=== PATIENT | male | born 1950 | race African-American/Black ===

== ENCOUNTER 2021-12-24 11:44 | Inpatient (IN) | payer OTHER, MEDICAID ==
[~2021-12-24] VITALS: Ht 177.8 cm; Wt 78.0 kg
[2021-12-24 11:54] VITALS: BP_SYST 99
[2021-12-24] MEDS ORDERED: LORazepam 2 MG/ML VIAL IVP ONE (12:15)
[2021-12-24] MEDS ORDERED: levETIRAcetam 1,000 MG in NS 90 ML IV ONE (12:15)
[2021-12-24 12:27] LABS: BASOPHILS % (AUTO) 0.3 % (0.0-2.0); EOSINOPHILS # (AUTO) 0.1 K/uL (0.0-0.4); EOSINOPHILS % (AUTO) 1.7 % (0.0-4.0); HEMOGLOBIN 11.2 g/dL (14.0-18.0); LYMPHOCYTES # (AUTO) 0.9 K/uL (1.0-5.5); LYMPHOCYTES % (AUTO) 18.3 % (20.5-51.5); MEAN CORPUSCULAR HEMOGLOBIN 29 pg (27-31); MEAN CORPUSCULAR HGB CONC 34 % (32-36); MEAN CORPUSCULAR VOLUME 87 fL (79.0-98.0); MONOCYTES # (AUTO) 1.3 K/uL (0.0-1.0); MONOCYTES % (AUTO) 27.2 % (1.7-9.3); NEUTROPHILS # (AUTO) 2.6 K/uL (1.8-7.7); NEUTROPHILS % (AUTO) 52.5 % (40.0-70.0); PLATELET COUNT (AUTO) 243 K/uL (130-430); RED CELL DISTRIBUTION WIDTH 14.4 % (9.0-15.0)
[2021-12-24 12:35] LABS: ANION GAP 10 (5-15); CALCIUM 8.1 mg/dL (8.4-11.0); CHLORIDE 97 mmol/L (98-107); CREATININE 0.75 mg/dL (0.55-1.30); GLUCOSE 136 mg/dL (70-99); POTASSIUM 3.8 mmol/L (3.5-5.1); SODIUM SERUM 127 mmol/L (136-145); UREA NITROGEN, BLOOD 11 mg/dL (8-21)
[2021-12-24 12:41] LABS: ALANINE AMINOTRANSFERASE 20 U/L (12-78); ALBUMIN 1.9 g/dL (3.4-4.8); ASPARTATE AMINOTRANSFERASE 16 U/L (10-37); TOTAL BILIRUBIN 0.3 mg/dL (0.0-1.0)
[2021-12-24 12:43] LABS: ALCOHOL, BLOOD < 3 mg/dL (<10)
[2021-12-24] MEDS ORDERED: VALPROATE SODIUM 500 MG in D5W 100 ML IV ONE (13:45)
[2021-12-24] MEDS: levETIRAcetam 500 MG IV PREMIX 100 ML IV SCH (18:00)
[2021-12-24] MEDS: D5NS 1,000 ML IV SCH (19:03)
[2021-12-24] MEDS ORDERED: SENN-153 PO (20:00)
[2021-12-24] MEDS ORDERED: TAMS-11 PO (20:00)
[2021-12-24] MEDS ORDERED: ZINC220T4 PO (20:00)
[2021-12-24] MEDS ORDERED: BISA10SU8 PR (20:00)
[2021-12-24] MEDS ORDERED: MELA3CAP2 PO (20:00)
[2021-12-24] MEDS ORDERED: DEPS125 PO (20:00)
[2021-12-24] MEDS ORDERED: HYDR-4272 PO (20:00)
[2021-12-24] MEDS ORDERED: FINA5TAB3 PO (20:00)
[2021-12-24] MEDS ORDERED: ASCO500C18 PO (20:00)
[2021-12-24] MEDS ORDERED: POLY119P15 PO (20:00)
[2021-12-24] MEDS ORDERED: DOCU-144 PO (20:00)
[2021-12-24] MEDS ORDERED: PARO40TA80 PO (20:00)
[2021-12-24] MEDS ORDERED: ATOR20TA64 PO (20:00)
[2021-12-24 23:02] VITALS: BP_SYST 135
[2021-12-25] VITALS (12 sets, daily range): BP systolic 104–131
[2021-12-25] MEDS: D5NS 1,000 ML IV SCH ×3 (03:00→23:00)
[2021-12-25] MEDS: levETIRAcetam 500 MG IV PREMIX 100 ML IV SCH ×2 (06:28→17:06)
[2021-12-25 07:43] LABS: BASOPHILS % (AUTO) 0.3 % (0.0-2.0); EOSINOPHILS # (AUTO) 0.1 K/uL (0.0-0.4); EOSINOPHILS % (AUTO) 2.1 % (0.0-4.0); HEMOGLOBIN 11.6 g/dL (14.0-18.0); LYMPHOCYTES # (AUTO) 1.8 K/uL (1.0-5.5); LYMPHOCYTES % (AUTO) 26.8 % (20.5-51.5); MEAN CORPUSCULAR HEMOGLOBIN 30 pg (27-31); MEAN CORPUSCULAR HGB CONC 34 % (32-36); MEAN CORPUSCULAR VOLUME 87 fL (79.0-98.0); MONOCYTES % (AUTO) 29.2 % (1.7-9.3); NEUTROPHILS # (AUTO) 2.8 K/uL (1.8-7.7); NEUTROPHILS % (AUTO) 41.6 % (40.0-70.0); PLATELET COUNT (AUTO) 244 K/uL (130-430); RED BLOOD CELL COUNT(AUTO) 3.92 MIL/uL (4.2-6.2); RED CELL DISTRIBUTION WIDTH 14.2 % (9.0-15.0); WHITE BLOOD COUNT (AUTO) 6.7 K/uL (4.8-10.8)
[2021-12-25 09:24] LABS: ANION GAP 12 (5-15); CHLORIDE 99 mmol/L (98-107); CREATININE 0.68 mg/dL (0.55-1.30); GLUCOSE 131 mg/dL (70-99); POTASSIUM 4.2 mmol/L (3.5-5.1); SODIUM SERUM 131 mmol/L (136-145); TOTAL BILIRUBIN 0.2 mg/dL (0.0-1.0); UREA NITROGEN, BLOOD 10 mg/dL (8-21)
[2021-12-25 09:25] LABS: ALANINE AMINOTRANSFERASE 15 U/L (12-78); ALBUMIN 1.9 g/dL (3.4-4.8); ASPARTATE AMINOTRANSFERASE 15 U/L (10-37)
[2021-12-25] MEDS: PIPERACILLIN/TAZO 3.375/DEX-IS 50 ML IV SCH ×3 (12:00→17:48)
[2021-12-26] VITALS (25 sets, daily range): BP systolic 109–144
[2021-12-26] MEDS: PIPERACILLIN/TAZO 3.375/DEX-IS 50 ML IV SCH ×5 (00:58→23:09)
[2021-12-26] MEDS: levETIRAcetam 500 MG IV PREMIX 100 ML IV SCH ×2 (05:17→17:29)
[2021-12-26 05:57] LABS: BASOPHILS % (AUTO) 0.4 % (0.0-2.0); EOSINOPHILS # (AUTO) 0.1 K/uL (0.0-0.4); EOSINOPHILS % (AUTO) 1.9 % (0.0-4.0); HEMOGLOBIN 10.5 g/dL (14.0-18.0); LYMPHOCYTES # (AUTO) 1.4 K/uL (1.0-5.5); LYMPHOCYTES % (AUTO) 24.7 % (20.5-51.5); MEAN CORPUSCULAR HEMOGLOBIN 29 pg (27-31); MEAN CORPUSCULAR HGB CONC 34 % (32-36); MEAN CORPUSCULAR VOLUME 87 fL (79.0-98.0); MONOCYTES # (AUTO) 1.4 K/uL (0.0-1.0); MONOCYTES % (AUTO) 24.5 % (1.7-9.3); NEUTROPHILS # (AUTO) 2.8 K/uL (1.8-7.7); NEUTROPHILS % (AUTO) 48.5 % (40.0-70.0); PLATELET COUNT (AUTO) 272 K/uL (130-430); RED BLOOD CELL COUNT(AUTO) 3.58 MIL/uL (4.2-6.2); RED CELL DISTRIBUTION WIDTH 14.3 % (9.0-15.0); WHITE BLOOD COUNT (AUTO) 5.7 K/uL (4.8-10.8)
[2021-12-26 06:17] LABS: ALANINE AMINOTRANSFERASE 12 U/L (12-78); ALBUMIN 1.7 g/dL (3.4-4.8); ANION GAP 8 (5-15); ASPARTATE AMINOTRANSFERASE 15 U/L (10-37); CALCIUM 7.6 mg/dL (8.4-11.0); CHLORIDE 101 mmol/L (98-107); CREATININE 0.77 mg/dL (0.55-1.30); GLUCOSE 135 mg/dL (70-99); POTASSIUM 3.9 mmol/L (3.5-5.1); SODIUM SERUM 132 mmol/L (136-145); TOTAL BILIRUBIN 0.2 mg/dL (0.0-1.0); UREA NITROGEN, BLOOD 10 mg/dL (8-21)
[2021-12-26] MEDS: D5NS 1,000 ML IV SCH ×2 (13:02→19:00)
[2021-12-26] MEDS ORDERED: MENTHOL/ZINC OXIDE 113 GM OINT. TP PRN (16:00)
[2021-12-26] MEDS ORDERED: NALOXONE HCL 0.4 MG/ML AMP (NARCAN) IVP PRN (17:15)
[2021-12-26] MEDS ORDERED: MORPHINE 2 MG/ML INJ. SYRINGE IVP ONE (17:30)
[2021-12-27] VITALS (21 sets, daily range): BP systolic 115–151
[2021-12-27] MEDS: D5NS 1,000 ML IV SCH (00:56)
[2021-12-27 03:43] LABS: BILIRUBIN,URINE NEGATIVE (NEGATIVE); BLOOD, URINE 2+ (NEGATIVE); CLARITY/URINE CLEAR (CLEAR); COLOR,URINE YELLOW (YELLOW); GLUCOSE,URINE NEGATIVE (NEGATIVE); KETONES,URINE NEGATIVE (NEGATIVE); LEUKOCYTE ESTERASE ,URINE NEGATIVE (NEGATIVE); NITRITE, URINE NEGATIVE (NEGATIVE); PH,URINE 6.5 (5.0-8.0); PROTEIN URINE NEGATIVE (NEGATIVE)
[2021-12-27 04:04] LABS: BACTERIA,URINE RARE /HPF (None Seen); WBC,URINE 0-3 /HPF (0-3)
[2021-12-27] MEDS: levETIRAcetam 500 MG IV PREMIX 100 ML IV SCH (05:14)
[2021-12-27] MEDS: PIPERACILLIN/TAZO 3.375/DEX-IS 50 ML IV SCH (05:52)
[2021-12-27 06:15] LABS: BASOPHILS % (AUTO) 0.4 % (0.0-2.0); EOSINOPHILS # (AUTO) 0.2 K/uL (0.0-0.4); EOSINOPHILS % (AUTO) 3.1 % (0.0-4.0); HEMATOCRIT 31.4 % (36-54); HEMOGLOBIN 10.7 g/dL (14.0-18.0); LYMPHOCYTES # (AUTO) 1.4 K/uL (1.0-5.5); LYMPHOCYTES % (AUTO) 25.4 % (20.5-51.5); MEAN CORPUSCULAR HEMOGLOBIN 30 pg (27-31); MEAN CORPUSCULAR HGB CONC 34 % (32-36); MEAN CORPUSCULAR VOLUME 86 fL (79.0-98.0); MONOCYTES # (AUTO) 1.2 K/uL (0.0-1.0); MONOCYTES % (AUTO) 20.7 % (1.7-9.3); NEUTROPHILS # (AUTO) 2.8 K/uL (1.8-7.7); NEUTROPHILS % (AUTO) 50.4 % (40.0-70.0); PLATELET COUNT (AUTO) 275 K/uL (130-430); RED BLOOD CELL COUNT(AUTO) 3.64 MIL/uL (4.2-6.2); RED CELL DISTRIBUTION WIDTH 14.5 % (9.0-15.0); WHITE BLOOD COUNT (AUTO) 5.6 K/uL (4.8-10.8)
[2021-12-27 06:36] LABS: ALANINE AMINOTRANSFERASE 11 U/L (12-78); ALBUMIN 1.8 g/dL (3.4-4.8); ANION GAP 7 (5-15); ASPARTATE AMINOTRANSFERASE 21 U/L (10-37); CALCIUM 7.5 mg/dL (8.4-11.0); CHLORIDE 100 mmol/L (98-107); CREATININE 0.72 mg/dL (0.55-1.30); GLUCOSE 129 mg/dL (70-99); POTASSIUM 3.6 mmol/L (3.5-5.1); SODIUM SERUM 131 mmol/L (136-145); TOTAL BILIRUBIN 0.3 mg/dL (0.0-1.0); UREA NITROGEN, BLOOD 7 mg/dL (8-21)
[2021-12-27] MEDS: BALSAM PERU/CASTOR OIL 56.7 GM OINT...G. TP SCH (09:00)
[2021-12-27] MEDS ORDERED: cefTRIAXone 1 GM in D5W 50 ML IV SCH (12:00)
[2021-12-27] MEDS ORDERED: HALOPERIDOL LACTATE 5 MG/ML VIAL IM PRN (18:30)
[2021-12-27] MEDS ORDERED: NALOXONE HCL 0.4 MG/ML AMP (NARCAN) IVP PRN (18:30)
[2021-12-27] MEDS: LORazepam 1 MG TABLET PO PRN (18:59)
[2021-12-27] MEDS: levETIRAcetam 500 MG TABLET PO SCH (22:19)
[2021-12-28] VITALS (8 sets, daily range): BP systolic 102–149
[2021-12-28] MEDS: PARoxetine HCL 20 MG TABLET PO SCH (09:01)
[2021-12-28] MEDS: levETIRAcetam 500 MG TABLET PO SCH ×2 (09:01→20:58)
[2021-12-28] MEDS: HYDROcodone/ACETAMIN 5-325 MG TAB (NORCO/ VICODIN) PO PRN ×3 (09:05→20:59)
[2021-12-28 10:10] LABS: BASOPHILS # (AUTO) 0.1 K/uL (0.0-0.2); BASOPHILS % (AUTO) 0.8 % (0.0-2.0); EOSINOPHILS # (AUTO) 0.1 K/uL (0.0-0.4); EOSINOPHILS % (AUTO) 1.7 % (0.0-4.0); HEMATOCRIT 31.9 % (36-54); LYMPHOCYTES # (AUTO) 1.5 K/uL (1.0-5.5); LYMPHOCYTES % (AUTO) 21.4 % (20.5-51.5); MEAN CORPUSCULAR HEMOGLOBIN 30 pg (27-31); MEAN CORPUSCULAR HGB CONC 34 % (32-36); MEAN CORPUSCULAR VOLUME 86 fL (79.0-98.0); MONOCYTES # (AUTO) 1.2 K/uL (0.0-1.0); MONOCYTES % (AUTO) 17.8 % (1.7-9.3); NEUTROPHILS # (AUTO) 4.1 K/uL (1.8-7.7); NEUTROPHILS % (AUTO) 58.3 % (40.0-70.0); PLATELET COUNT (AUTO) 297 K/uL (130-430); RED CELL DISTRIBUTION WIDTH 14.3 % (9.0-15.0); WHITE BLOOD COUNT (AUTO) 6.9 K/uL (4.8-10.8)
[2021-12-28 10:17] LABS: ANION GAP 10 (5-15); CALCIUM 7.8 mg/dL (8.4-11.0); CHLORIDE 102 mmol/L (98-107); CREATININE 0.78 mg/dL (0.55-1.30); GLUCOSE 155 mg/dL (70-99); POTASSIUM 3.4 mmol/L (3.5-5.1); SODIUM SERUM 134 mmol/L (136-145); UREA NITROGEN, BLOOD 9 mg/dL (8-21)
[2021-12-28] MEDS: BALSAM PERU/CASTOR OIL 56.7 GM OINT...G. TP SCH (13:05)
[2021-12-28] MEDS: D5NS 1,000 ML IV SCH ×2 (13:05→21:01)
[2021-12-28] MEDS: FLUCONAZOLE 200 mg/ NS 100 ML IV SCH (16:36)
[2021-12-28] MEDS: CEFEPIME 2 GM in D5W 100 ML IV SCH (21:00)
[2021-12-29 00:42] VITALS: BP_SYST 156
[2021-12-29 07:00] VITALS: BP_SYST 139
[2021-12-29 08:00] VITALS: BP_SYST 139
[2021-12-29] MEDS: PARoxetine HCL 20 MG TABLET PO SCH (08:29)
[2021-12-29] MEDS: levETIRAcetam 500 MG TABLET PO SCH ×2 (08:29→20:23)
[2021-12-29] MEDS: HYDROcodone/ACETAMIN 5-325 MG TAB (NORCO/ VICODIN) PO PRN (08:30)
[2021-12-29] MEDS: CEFEPIME 2 GM in D5W 100 ML IV SCH ×2 (08:38→20:24)
[2021-12-29] MEDS: BALSAM PERU/CASTOR OIL 56.7 GM OINT...G. TP SCH (09:00)
[2021-12-29] MEDS: LORazepam 1 MG TABLET PO PRN (11:53)
[2021-12-29 12:00] VITALS: BP_SYST 137
[2021-12-29] MEDS: D5NS 1,000 ML IV SCH ×2 (13:00→18:13)
[2021-12-29] MEDS: FLUCONAZOLE 200 mg/ NS 100 ML IV SCH (15:41)
[2021-12-29 16:01] VITALS: BP_SYST 126
[2021-12-29 20:00] VITALS: BP_SYST 109
[2021-12-29] MEDS ORDERED: ACETAMINOPHEN 325 MG TABLET PO PRN (20:15)
[2021-12-29 21:20] LABS: BASOPHILS % (AUTO) 0.4 % (0.0-2.0); EOSINOPHILS # (AUTO) 0.2 K/uL (0.0-0.4); EOSINOPHILS % (AUTO) 2.5 % (0.0-4.0); HEMATOCRIT 31.2 % (36-54); HEMOGLOBIN 10.5 g/dL (14.0-18.0); LYMPHOCYTES # (AUTO) 1.7 K/uL (1.0-5.5); LYMPHOCYTES % (AUTO) 17.2 % (20.5-51.5); MEAN CORPUSCULAR HEMOGLOBIN 29 pg (27-31); MEAN CORPUSCULAR HGB CONC 34 % (32-36); MEAN CORPUSCULAR VOLUME 86 fL (79.0-98.0); MONOCYTES # (AUTO) 1.3 K/uL (0.0-1.0); MONOCYTES % (AUTO) 13.6 % (1.7-9.3); NEUTROPHILS # (AUTO) 6.5 K/uL (1.8-7.7); NEUTROPHILS % (AUTO) 66.3 % (40.0-70.0); PLATELET COUNT (AUTO) 338 K/uL (130-430); RED BLOOD CELL COUNT(AUTO) 3.61 MIL/uL (4.2-6.2); RED CELL DISTRIBUTION WIDTH 14.5 % (9.0-15.0); WHITE BLOOD COUNT (AUTO) 9.8 K/uL (4.8-10.8)
[2021-12-29 21:29] LABS: ANION GAP 7 (5-15); CALCIUM 7.2 mg/dL (8.4-11.0); CHLORIDE 103 mmol/L (98-107); CREATININE 0.88 mg/dL (0.55-1.30); GLUCOSE 198 mg/dL (70-99); POTASSIUM 4.6 mmol/L (3.5-5.1); SODIUM SERUM 133 mmol/L (136-145); UREA NITROGEN, BLOOD 11 mg/dL (8-21)
[2021-12-29 21:43] LABS: BILIRUBIN,URINE NEGATIVE (NEGATIVE); BLOOD, URINE NEGATIVE (NEGATIVE); COLOR,URINE YELLOW (YELLOW); GLUCOSE,URINE NEGATIVE (NEGATIVE); KETONES,URINE NEGATIVE (NEGATIVE); LEUKOCYTE ESTERASE ,URINE 2+ (NEGATIVE); NITRITE, URINE NEGATIVE (NEGATIVE); PH,URINE 6.5 (5.0-8.0); PROTEIN URINE NEGATIVE (NEGATIVE)
[2021-12-29 21:49] LABS: CLARITY/URINE SLIGHTLY HAZY (CLEAR)
[2021-12-29 22:14] LABS: BACTERIA,URINE FEW /HPF (None Seen); RBC,URINE NONE SEEN /HPF (0-3)
[2021-12-30] VITALS (9 sets, daily range): BP systolic 123–152
[2021-12-30] MEDS: D5NS 1,000 ML IV SCH ×2 (03:31→13:02)
[2021-12-30] MEDS: BALSAM PERU/CASTOR OIL 56.7 GM OINT...G. TP SCH (09:00)
[2021-12-30] MEDS: levETIRAcetam 500 MG TABLET PO SCH (09:00)
[2021-12-30] MEDS: PARoxetine HCL 20 MG TABLET PO SCH (09:00)
[2021-12-30] MEDS: CEFEPIME 2 GM in D5W 100 ML IV SCH (09:00)
[2021-12-30 09:38] LABS: BASOPHILS # (AUTO) 0.1 K/uL (0.0-0.2); BASOPHILS % (AUTO) 0.7 % (0.0-2.0); EOSINOPHILS # (AUTO) 0.3 K/uL (0.0-0.4); EOSINOPHILS % (AUTO) 2.6 % (0.0-4.0); HEMOGLOBIN 10.6 g/dL (14.0-18.0); LYMPHOCYTES # (AUTO) 1.9 K/uL (1.0-5.5); LYMPHOCYTES % (AUTO) 18.7 % (20.5-51.5); MEAN CORPUSCULAR HEMOGLOBIN 30 pg (27-31); MEAN CORPUSCULAR HGB CONC 34 % (32-36); MEAN CORPUSCULAR VOLUME 87 fL (79.0-98.0); MONOCYTES # (AUTO) 1.1 K/uL (0.0-1.0); MONOCYTES % (AUTO) 11.3 % (1.7-9.3); NEUTROPHILS # (AUTO) 6.8 K/uL (1.8-7.7); NEUTROPHILS % (AUTO) 66.7 % (40.0-70.0); PLATELET COUNT (AUTO) 326 K/uL (130-430); RED BLOOD CELL COUNT(AUTO) 3.56 MIL/uL (4.2-6.2); RED CELL DISTRIBUTION WIDTH 14.6 % (9.0-15.0); WHITE BLOOD COUNT (AUTO) 10.2 K/uL (4.8-10.8)
[2021-12-30 10:13] LABS: ANION GAP 8 (5-15); CALCIUM 7.9 mg/dL (8.4-11.0); CHLORIDE 103 mmol/L (98-107); CREATININE 0.81 mg/dL (0.55-1.30); GLUCOSE 177 mg/dL (70-99); POTASSIUM 3.8 mmol/L (3.5-5.1); SODIUM SERUM 135 mmol/L (136-145); UREA NITROGEN, BLOOD 9 mg/dL (8-21)
[2021-12-30] MEDS ORDERED: DOXY100T2 PO (11:51)
[2021-12-30] MEDS: FLUCONAZOLE 200 mg/ NS 100 ML IV SCH (18:30)
== END 2021-12-30 21:35 | DRG 40 ==
LOC: SED 11:44 → STU 14:13 → SIC 12-25 13:30 → STU 12-27 20:56 → SMU 12-30 15:23
PROVIDERS: ADMIT Internal Medicine Hospice and Palliative Medicine; ATTEND Internal Medicine Hospice and Palliative Medicine
PROC: 0JB90ZZ Excision of Buttock Subcutaneous Tissue and Fascia, Open Approach (ICD-10-PCS; principal; 2021-12-28)
DX: G40.909 Epilepsy, unspecified, not intractable, without status epilepticus (principal); L89.154 Pressure ulcer of sacral region, stage 4; E87.1 Hypo-osmolality and hyponatremia; E11.52 Type 2 diabetes mellitus with diabetic peripheral angiopathy with gangrene; G93.1 Anoxic brain damage, not elsewhere classified; L03.818 Cellulitis of other sites; D64.9 Anemia, unspecified; Z20.822 Contact with and (suspected) exposure to COVID-19; E78.5 Hyperlipidemia, unspecified; E66.9 Obesity, unspecified; Z68.24 Body mass index [BMI] 24.0-24.9, adult; Z79.899 Other long term (current) drug therapy
CPT/HCPCS: 36415; 70450-TC; 71045; 76376; 80048; 80053; 80164; 80307; 81000; 82803-TC; 82962; 83605; 85025; 87040; 87081; 87086; 92610-GN; 95816; 96365; 97163-GP; 99285; G0378; G0482; J0692; J0696; J1450; J1630; J1953; J2270; J2543; J7060

== ENCOUNTER 2022-03-05 14:53 | Inpatient (IN) | payer OTHER, MEDICAID ==
[~2022-03-05] VITALS: Ht 180.3 cm; Wt 75.7 kg
[2022-03-05] MEDS: KCL 20 mEq in D5/0.45NS 1000mL 1,000 ML IV SCH (01:00)
[2022-03-05 14:53] VITALS: BP_SYST 101
[~2022-03-05 14:53] MED LIST: ASCO500C18 PO; ATOR20TA64 PO; BISA10SU8 PR; DEPS125 PO; DOCU-144 PO; DOXY100T2 PO; FINA5TAB3 PO; HYDR-4272 PO; MELA3CAP2 PO; PARO40TA80 PO; POLY119P15 PO; SENN-153 PO; TAMS-11 PO; ZINC220T4 PO
--- NOTE | 2022-03-05 14:53 | NUR ---
BROUGHT IN BY [facility], PLACED IN BED #1 AND TRIAGED. REPORT GIVEN TO FLORIAN
--- NOTE | 2022-03-05 14:58 | NUR ---
Patient arrived to ED bed 1 from ambulance. Report received from NIMO Trujillo for continuity of care. Patient SUN from [facility] c/o left elbow pain and seizures. Patient c/o seizures and has history of seizures.Patient in stable condition. Vitals stable with elevated HR 120 bpm. Patient has lazo catheter in place from facility.
[2022-03-05] MEDS ORDERED: levETIRAcetam 500 MG IV PREMIX 100 ML IV ONE (15:00)
--- NOTE | 2022-03-05 15:00 | NUR ---
IV started by ERICA Segundo on right hand 22G that is clean, dry, and intact.
[2022-03-05] MEDS ORDERED: NACL 0.9% 1,000 ML IV ONE (15:15)
[2022-03-05 16:10] LABS: BASOPHILS % (AUTO) 0.4 % (0.0-2.0); EOSINOPHILS # (AUTO) 0.4 K/uL (0.0-0.4); EOSINOPHILS % (AUTO) 8.5 % (0.0-4.0); HEMATOCRIT 25.3 % (36-54); HEMOGLOBIN 8.5 g/dL (14.0-18.0); LYMPHOCYTES # (AUTO) 1.1 K/uL (1.0-5.5); LYMPHOCYTES % (AUTO) 26.4 % (20.5-51.5); MEAN CORPUSCULAR HEMOGLOBIN 30 pg (27-31); MEAN CORPUSCULAR HGB CONC 34 % (32-36); MEAN CORPUSCULAR VOLUME 88 fL (79.0-98.0); MONOCYTES # (AUTO) 0.5 K/uL (0.0-1.0); MONOCYTES % (AUTO) 11.9 % (1.7-9.3); NEUTROPHILS # (AUTO) 2.2 K/uL (1.8-7.7); NEUTROPHILS % (AUTO) 52.8 % (40.0-70.0); PLATELET COUNT (AUTO) 165 K/uL (130-430); RED BLOOD CELL COUNT(AUTO) 2.86 MIL/uL (4.2-6.2); RED CELL DISTRIBUTION WIDTH 15.6 % (9.0-15.0); WHITE BLOOD COUNT (AUTO) 4.2 K/uL (4.8-10.8)
[2022-03-05 16:24] LABS: BILIRUBIN,URINE NEGATIVE (NEGATIVE); BLOOD, URINE 3+ (NEGATIVE); CLARITY/URINE CLOUDY (CLEAR); COLOR,URINE YELLOW (YELLOW); GLUCOSE,URINE NEGATIVE (NEGATIVE); KETONES,URINE TRACE (NEGATIVE); LEUKOCYTE ESTERASE ,URINE 3+ (NEGATIVE); NITRITE, URINE POSITIVE (NEGATIVE); PROTEIN URINE 2+ (NEGATIVE)
[2022-03-05 16:40] LABS: BACTERIA,URINE MANY /HPF (None Seen); WBC,URINE >100 /HPF (0-3)
[2022-03-05 16:43] LABS: ALANINE AMINOTRANSFERASE 14 U/L (12-78); ALBUMIN 1.3 g/dL (3.4-4.8); ANION GAP 9 (5-15); ASPARTATE AMINOTRANSFERASE 14 U/L (10-37); CHLORIDE 115 mmol/L (98-107); CREATININE 0.48 mg/dL (0.55-1.30); GLUCOSE 75 mg/dL (70-99); SODIUM SERUM 142 mmol/L (136-145); UREA NITROGEN, BLOOD 16 mg/dL (8-21)
[2022-03-05 17:00] LABS: TOTAL BILIRUBIN 0.1 mg/dL (0.0-1.0)
[2022-03-05] MEDS ORDERED: cefTRIAXone 1 GM in D5W 50 ML IV ONE (17:00)
[2022-03-05 17:02] LABS: POTASSIUM 2.4 mmol/L (3.5-5.1)
[2022-03-05 17:04] LABS: CALCIUM 5.8 mg/dL (8.4-11.0)
[2022-03-05] MEDS ORDERED: KCL 20 mEq in 100 mL (PREMIX) 100 ML IV ONE ×2 (17:15→22:15)
[2022-03-05] MEDS ORDERED: CALCIUM GLUCONATE 1 GM in NS 100 ML IV ONE (17:15)
--- NOTE | 2022-03-05 17:46 | NUR ---
pATIENT SAYS HE HAS NEW ONSET SEIZURES. DR. BOWLING MADE AWARE.
--- NOTE | 2022-03-05 18:10 | NUR ---
COVID-19 MARIAM SWAB OBTAINED, LABELED AND SENT TO THE LAB.
[2022-03-05] MEDS ORDERED: cefTRIAXone 1 GM VIAL ONE (19:19)
[2022-03-05] MEDS ORDERED: CALCIUM GLUCONATE 1 GM/10 ML VIAL ONE (19:20)
--- NOTE | 2022-03-05 19:26 | NUR ---
Report given to ERICA Jimenez for continuity of care. Patient stable condition.
--- NOTE | 2022-03-05 19:26 | NUR ---
Report given to ERICA Aguirre for continuity of care. Patient stable condition.
--- NOTE | 2022-03-05 22:24 | NUR ---
ATTEMPTED TO START IV FOR MEDICATIONS BUT PATIENT REFUSES. IV KCL INFUSING AT THIS TIME. NAD NOTED. WILL CONTINUE TO MONITOR.
[2022-03-05] MEDS ORDERED: ACET-73 PO (22:25)
[2022-03-05] MEDS ORDERED: ALLO100T PO (22:25)
[2022-03-05] MEDS ORDERED: NOR10 PO (22:31)
[2022-03-05] MEDS ORDERED: ARGI1POW13 PO (22:32)
[2022-03-05] MEDS ORDERED: LEVE100S PO (22:37)
[2022-03-05] MEDS ORDERED: IBUP-2604 PO (22:38)
[2022-03-05] MEDS ORDERED: TRAZ-250 PO (22:46)
[2022-03-05] MEDS ORDERED: MOM PO (22:47)
[2022-03-05] MEDS ORDERED: DICL100G33 TP (22:51)
[2022-03-05] MEDS ORDERED: ASPI-1393 PO (22:52)
[2022-03-05] MEDS ORDERED: MULT9LIQ6 PO (22:54)
[2022-03-05] MEDS ORDERED: MENT118G TP (22:56)
--- NOTE | 2022-03-05 22:59 | NUR ---
Medication reconciliation completed with information provided by Prashanth Sierra. Any prior medication reconciliation on file was reviewed and corrected.
--- NOTE | 2022-03-05 23:22 | NUR ---
REPORT GIVEN TO ERICA RAMOS ON M/S.
--- NOTE | 2022-03-05 23:45 | NUR ---
ADMIT NOTE Received pt from ER to the floor with a diagnosis of seizure activity and UTI. Admission process initiated. Patient oriented to pain management, safety and call light-teach back done.
[2022-03-05 23:59] VITALS: BP_SYST 140
--- NOTE | 2022-03-06 00:57 | NUR ---
Paged Dr. Ashley, s/w Sherley.
[2022-03-06] MEDS ORDERED: ACETAMINOPHEN 325 MG TABLET PO PRN (01:00)
--- NOTE | 2022-03-06 01:06 | NUR ---
Notified Dr. Ashley of new admission and current complaint of pain. Received order for Tylenol PRN and Percocet PRN. Also received order for patient's diet to be NPO except meds.
[2022-03-06] MEDS: OXYCODONE/ACETAMINOPHEN 5-325 TABLET PO PRN ×2 (03:20→12:42)
[2022-03-06] MEDS: KCL 20 mEq in D5/0.45NS 1000mL 1,000 ML IV SCH ×2 (06:50→20:10)
[2022-03-06 08:00] VITALS: BP_SYST 147
--- NOTE | 2022-03-06 09:20 | NUR ---
Tamara and spoke to Dr. Aranda, covering for Dr. Duarte. Pt is non compliant. Refused most treatments. Refused to established a new peripheral iv, labs, be turned to assess skin. Pt is very irritable and upset. Attempted to educate the patient why they need to be done but pt just became more upset and wanted to left alone. No distress, denies any chest pain. lazo in place and draining via gravity.
--- NOTE | 2022-03-06 10:00 | NUR ---
Dr. Aranda here to round on the patient. Informed MD that pt has agreed to have blood drawn and have IV restarted and does not want to go on hospice care. Will closely monitor pt.
--- NOTE | 2022-03-06 10:45 | NUR ---
Pt has changed his mind. Refused to have iv line established and refused blood draw for lab works. Informed Dr. Aranda.
--- NOTE | 2022-03-06 11:30 | NUR ---
INFORMED MD MEDS NEEDS TO BE RECONCILED. DR. PINEDA AT BEDSIDE TO DISCUSS FOR HOSPICE CARE. PT REFUSED, IV MEDS, BLOOD DRAWS AND OR ANY INVASIVE PROCEDURE. PER PT HE JUST WANT TO BE COMFORTABLE. MD RECOMMENDED AND EXPLAINED HOSPICE CARE. ORDER RECEIVED. PT DOES NOT WANT ANY OTHER TREATMENT. PT REFUSED IV MEDS. BLOOD DRAWS, BE TOUCHED, OR BE REPOSITIONED. PT REFUSED TURNING. MD AWARE PT HAS NO IV ACCESS AND NOT ABLE TO GIVE IV ANTIBIOTICS AND LOW MAG LEVEL.
[2022-03-06 12:34] VITALS: BP_SYST 134
[2022-03-06 16:22] VITALS: BP_SYST 121
--- NOTE | 2022-03-06 17:55 | NUR ---
LEFT MESSAGE TO [facility] TEL [phone] RE CONSULT.
--- NOTE | 2022-03-06 19:00 | NUR ---
received pt resting in bed having dinner.on assessment pt is alert and oriented x 3 reoriented to time. pt is on seizure precaution,padded bedside he denies any discomfort has declined to have IVF re started. vitals done and recorded within normal range
--- NOTE | 2022-03-06 19:00 | NUR ---
Received pt from outgoing nurse,he is alert and oriented to self, place and situation. o 2L oxygen via nasal canula and not in distress,He has declined to have an iv canula place
[2022-03-06 20:00] VITALS: BP_SYST 121
--- NOTE | 2022-03-06 20:00 | NUR ---
aware of pts refusal to lab works and meds
--- NOTE | 2022-03-06 21:00 | NUR ---
Cares offered and linen changed. pt is not i distress and vitals are within range
--- NOTE | 2022-03-06 22:00 | NUR ---
pt has declined to have an iv inserted
[2022-03-07 00:15] VITALS: BP_SYST 126
--- NOTE | 2022-03-07 02:00 | NUR ---
asleep not in distress vitals are acceptable
--- NOTE | 2022-03-07 02:00 | NUR ---
Attempted to restart the IV line, pt declined
--- NOTE | 2022-03-07 05:04 | NUR ---
During my last @0500 i offered pt (hygiene) to be cleaned he refused stated that he don't want to be touched.
--- NOTE | 2022-03-07 06:00 | NUR ---
Cares done pt has declined linen changed states he was minimal disturbance, states he is better without an iv line. pt had some pudding. awaits breakfast
[2022-03-07 08:20] VITALS: BP_SYST 117
[2022-03-07] MEDS: cefTRIAXone 1 GM in D5W 50 ML IV SCH ×2 (09:33→09:34)
[2022-03-07 12:50] VITALS: BP_SYST 136
--- NOTE | 2022-03-07 15:17 | NUR ---
0730 Pt. in bed, confused, vss, isolation in place due to covid 19 1200 Pt. with no distress, assisted with meals, new iv site to right forearm, 22g, pt. tolerated well 1400 No distress, call light in reach, no seizure activity noted.
[2022-03-07 16:55] VITALS: BP_SYST 154
[2022-03-07] MEDS: KCL 20 mEq in D5/0.45NS 1000mL 1,000 ML IV SCH (18:49)
--- NOTE | 2022-03-07 18:49 | NUR ---
1830 Pt. needs met this shift, vss, no acute covid symptoms, pox wnl. Denies pain, lazo patent , fall precautions in place. Report given to noc shift.
[2022-03-07 20:00] VITALS: BP_SYST 133; BP_SYST 139
[2022-03-08 00:42] VITALS: BP_SYST 139
[2022-03-08 08:00] VITALS: BP_SYST 155
[2022-03-08] MEDS: cefTRIAXone 1 GM in D5W 50 ML IV SCH (09:57)
[2022-03-08 12:00] VITALS: BP_SYST 155
[2022-03-08] MEDS: KCL 20 mEq in D5/0.45NS 1000mL 1,000 ML IV SCH (14:51)
[2022-03-08] MEDS ORDERED: levETIRAcetam 500 MG TABLET PO ONE (15:00)
[2022-03-08] MEDS ORDERED: MAGNESIUM SULFATE 50 ML IV ONE (18:15)
--- NOTE | 2022-03-08 21:30 | NUR ---
Opening note Received report from day nurse. Unable to assess pt, Charge Nurse Mariano
[2022-03-09] VITALS: BP_SYST 150; BP_SYST 155
[2022-03-09] MEDS: levETIRAcetam 500 MG TABLET PO SCH ×3 (02:40→20:58)
[2022-03-09] MEDS: SULFAMETHOXAZOLE/TRIMETHOPR DS 1 TABLET PO SCH ×3 (02:41→20:59)
[2022-03-09] MEDS: VALPROIC ACID 250 MG CAPSULE (DEPAKENE) PO SCH ×3 (02:41→20:58)
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
[2022-03-09 09:00] VITALS: BP_SYST 123
--- NOTE | 2022-03-09 09:08 | NUR ---
CONSULTATION PAGED REASON FOR CONSULTATION:SEIZURE WAS CONSULT CALLED?Y PERSON WHO WAS NOTIFIED:TEXT MESSAGED HEMALATHA CHAVEZ CONSULTING PHYSICIAN:HEMALATHA CHAVEZ WRAPPING CHECKER SPECIALTY:NEURO WRAPPING CHECKER PHONE NUMBER:[phone] REQUESTING PHYSICIAN:MERLYN MERRILL
--- NOTE | 2022-03-09 10:09 | NUR ---
NEURO CONSULT PAGED KVNG GOMEZ/Annabel EXCHANGE AT [phone] SPOKE WITH RAJ/
[2022-03-09] MEDS: ASPIRIN 81 MG TAB.CHEW PO SCH (11:21)
[2022-03-09] MEDS: amLODIPine BESYLATE 5 MG TABLET PO SCH (11:24)
[2022-03-09] MEDS: TAMSULOSIN HCL 0.4 MG CAP PO SCH (11:25)
[2022-03-09 11:33] VITALS: BP_SYST 133
[2022-03-09] MEDS: OXYCODONE/ACETAMINOPHEN 5-325 TABLET PO PRN (11:38)
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
[2022-03-09 16:05] VITALS: BP_SYST 129
--- NOTE | 2022-03-09 16:51 | NUR ---
PT. IS BEING REPOSITIONED EVERY 2 HOURS, PATIENT IS UNHAPPY ABOUT REPOSITIONING BUT IS WILLING TO REPOSITION WITH ENCOURAGEMENT. NO SIGNS OF ACUTE DISTRESS, FALL PRECAUTIONS AND SEIZURE PRECAUTIONS IN PLACE. O2 SATURATION IS STILL STABLE ON ROOM AIR.
--- NOTE | 2022-03-09 17:16 | NUR ---
Dietitian Recommendations * Mechanical soft, finely chopped diet, Ensure Enlive TID, Franco BID (supplements yield 1230 kcal/day, 65 gm protein/day) * MVIs for COVID/wound healing: MVI, VIT C, VIT D, zinc * Encourage increase PO intakes LP, MS, RD Please refer to Nutrition Assessment for details. Addendum: 03/09/22 at [address] Amended: Links added.
[2022-03-09 20:00] VITALS: BP_SYST 149
--- NOTE | 2022-03-09 20:00 | NUR ---
CLOSING NOTES FULL SBAR REPORT GIVEN TO RN SANIA, PT. IS CURRENTLY ASLEEP, NO SIGNS OF ACUTE DISTRESS. NOTIFIED SANIA OF WOUND ON COCCYX, PICTURE IS IN THE CHART.
[2022-03-09] MEDS: KCL 20 mEq in D5/0.45NS 1000mL 1,000 ML IV SCH (21:26)
[2022-03-10 01:57] VITALS: BP_SYST 130
[2022-03-10 04:00] VITALS: BP_SYST 143
[2022-03-10] MEDS: KCL 20 mEq in D5/0.45NS 1000mL 1,000 ML IV SCH (06:17)
--- NOTE | 2022-03-10 06:45 | NUR ---
Patient's IV access had been infiltrated. Tried re-insertion. Patient refused to be reinserted. Called the Nurse resource but still refused IV insertion. Will be endorsed to morning shift.
[2022-03-10 08:05] VITALS: BP_SYST 139
[2022-03-10] MEDS: ASPIRIN 81 MG TAB.CHEW PO SCH (11:12)
[2022-03-10] MEDS: SULFAMETHOXAZOLE/TRIMETHOPR DS 1 TABLET PO SCH ×2 (11:12→22:00)
[2022-03-10] MEDS: TAMSULOSIN HCL 0.4 MG CAP PO SCH (11:13)
[2022-03-10] MEDS: VALPROIC ACID 250 MG CAPSULE (DEPAKENE) PO SCH ×2 (11:13→21:00)
[2022-03-10] MEDS: levETIRAcetam 500 MG TABLET PO SCH ×2 (11:13→21:59)
[2022-03-10] MEDS: amLODIPine BESYLATE 5 MG TABLET PO SCH (11:14)
[2022-03-10 12:30] VITALS: BP_SYST 133
[2022-03-10] MEDS ORDERED: MAGNESIUM OXIDE 400 MG TABLET PO ONE ×2 (13:00→13:15)
[2022-03-10] MEDS ORDERED: POTASSIUM CHLORIDE 20 MEQ/PKT PACKET PO ONE (13:15)
[2022-03-10] MEDS ORDERED: MAGNESIUM OXIDE 400 MG TABLET PO SCH (13:15)
[2022-03-10 17:20] VITALS: BP_SYST 139
--- NOTE | 2022-03-10 19:30 | NUR ---
OPENING NOTES: Patient received from AM shift. Patient is AA&Ox3 able make needs known and has no s/s of distress at this time. Chest rise is even and unlabored on RA and denies any distress or pain. BS are active x4 and denies pain on palpation. Patient is currently stable at this time and has call light within reach able to verbalize needs. Safety protocols are in place. Will resume care and continue to monitor throughout the shift.
[2022-03-10 20:00] VITALS: BP_SYST 140
[2022-03-10] MEDS: OXYCODONE/ACETAMINOPHEN 5-325 TABLET PO PRN (21:59)
--- NOTE | 2022-03-11 00:30 | NUR ---
PATIENT RESTING: Patient resting quietly. No acute distress noted. Vital signs within normal range.
[2022-03-11 01:20] VITALS: BP_SYST 120
[2022-03-11] MEDS: MAGNESIUM OXIDE 400 MG TABLET PO SCH (09:00)
[2022-03-11] MEDS: TAMSULOSIN HCL 0.4 MG CAP PO SCH (09:00)
[2022-03-11] MEDS: ASPIRIN 81 MG TAB.CHEW PO SCH (09:00)
[2022-03-11] MEDS: SULFAMETHOXAZOLE/TRIMETHOPR DS 1 TABLET PO SCH ×2 (09:00→21:56)
[2022-03-11] MEDS: amLODIPine BESYLATE 5 MG TABLET PO SCH (09:00)
[2022-03-11] MEDS: levETIRAcetam 500 MG TABLET PO SCH ×2 (09:00→21:56)
[2022-03-11] MEDS: VALPROIC ACID 250 MG CAPSULE (DEPAKENE) PO SCH ×2 (09:00→21:56)
[2022-03-11] MEDS: POTASSIUM CHLORIDE 20 MEQ/PKT PACKET PO SCH (09:00)
[2022-03-11 13:51] VITALS: BP_SYST 146
[2022-03-11] MEDS ORDERED: VALP250C3 PO (15:34)
--- NOTE | 2022-03-11 19:00 | NUR ---
RECEIVED PT IN BED.AOX3.ON RA.NO IV NOTED.BED IN LOWEST POSITION.
[2022-03-11 19:30] VITALS: BP_SYST 144
[2022-03-11 20:00] VITALS: BP_SYST 142
--- NOTE | 2022-03-11 20:00 | NUR ---
ATTEMPTED TO INSERT AN IV BUT PT REFUSED.INFORMED NIMO MACK.
--- NOTE | 2022-03-12 01:00 | NUR ---
ERICA SWEENEY SPOKE TO THE PT REGARDING IV INSERTION.RN EXPLAINED THE BENEFITS OF IV BUT PT REFUSED.PT VERBALIZED THAT HE WOULD LIKE TO HAVE IV INSERTION AFTER 2-3 DAYS.INFORMED NIMO MACK REGARDING THE PT REFUSAL FOR IV INSERTION.
[2022-03-12 02:34] VITALS: BP_SYST 122
[2022-03-12 07:39] VITALS: BP_SYST 123
[2022-03-12] MEDS: POTASSIUM CHLORIDE 20 MEQ/PKT PACKET PO SCH (09:00)
[2022-03-12] MEDS: ASPIRIN 81 MG TAB.CHEW PO SCH (09:00)
[2022-03-12] MEDS: TAMSULOSIN HCL 0.4 MG CAP PO SCH (09:00)
[2022-03-12] MEDS: SULFAMETHOXAZOLE/TRIMETHOPR DS 1 TABLET PO SCH ×3 (09:00→23:23)
[2022-03-12] MEDS: VALPROIC ACID 250 MG CAPSULE (DEPAKENE) PO SCH ×2 (09:00→23:23)
[2022-03-12] MEDS: MAGNESIUM OXIDE 400 MG TABLET PO SCH (09:00)
[2022-03-12] MEDS: amLODIPine BESYLATE 5 MG TABLET PO SCH (09:00)
[2022-03-12] MEDS: levETIRAcetam 500 MG TABLET PO SCH ×2 (09:00→23:23)
--- NOTE | 2022-03-12 09:37 | NUR ---
Dr. Whatley and Dr. Dominguez insurance customer service specialist at bedside to see patient at this time, patient has c/o sob, patient has productive cough, spo2 down to 89% on 2 L o2 up to 4L via n/c and 99% spo2, orders from primary MD at this time.
[2022-03-12 11:51] VITALS: BP_SYST 130
[2022-03-12 12:00] VITALS: BP_SYST 126
[2022-03-12] MEDS: OXYCODONE/ACETAMINOPHEN 5-325 TABLET PO PRN ×2 (12:29→17:30)
[2022-03-12 16:22] VITALS: BP_SYST 134
[2022-03-12 20:00] VITALS: BP_SYST 126
[2022-03-12] MEDS ORDERED: HYDROcodone/ACETAMIN 5-325 MG TAB (NORCO/ VICODIN) PO PRN (23:00)
[2022-03-12] MEDS ORDERED: NALOXONE HCL 0.4 MG/ML AMP (NARCAN) IVP PRN ×2 (23:00)
[2022-03-12] MEDS: TEMAZEPAM 7.5 MG CAPSULE PO PRN (23:24)
[2022-03-12] MEDS: HYDROcodone/ACETAMIN 10-325 MG TAB PO PRN (23:25)
[2022-03-13 01:36] LABS: ANION GAP 8 (5-15); CALCIUM 9.5 mg/dL (8.4-11.0); CHLORIDE 100 mmol/L (98-107); CREATININE 1.02 mg/dL (0.55-1.30); GLUCOSE 84 mg/dL (70-99); POTASSIUM 4.4 mmol/L (3.5-5.1); SODIUM SERUM 135 mmol/L (136-145); UREA NITROGEN, BLOOD 21 mg/dL (8-21)
[2022-03-13 01:51] VITALS: BP_SYST 144
--- NOTE | 2022-03-13 02:00 | NUR ---
pt resting quietly positioned to right side
--- NOTE | 2022-03-13 04:00 | NUR ---
cares given and linen changed .orals cares and position changed
[2022-03-13 08:00] VITALS: BP_SYST 118
[2022-03-13] MEDS: SULFAMETHOXAZOLE/TRIMETHOPR DS 1 TABLET PO SCH (10:27)
[2022-03-13] MEDS: amLODIPine BESYLATE 5 MG TABLET PO SCH (10:27)
[2022-03-13] MEDS: levETIRAcetam 500 MG TABLET PO SCH ×2 (10:27→21:45)
[2022-03-13] MEDS: VALPROIC ACID 250 MG CAPSULE (DEPAKENE) PO SCH ×2 (10:27→21:45)
[2022-03-13] MEDS: TAMSULOSIN HCL 0.4 MG CAP PO SCH (10:27)
[2022-03-13] MEDS: MAGNESIUM OXIDE 400 MG TABLET PO SCH (10:27)
[2022-03-13] MEDS: POTASSIUM CHLORIDE 20 MEQ/PKT PACKET PO SCH (10:27)
[2022-03-13] MEDS: ASPIRIN 81 MG TAB.CHEW PO SCH (10:27)
[2022-03-13 14:09] VITALS: BP_SYST 148
--- NOTE | 2022-03-13 14:11 | NUR ---
called Prashanth corbin spoke with Tim in admissions, they cannot take patient back until after 10days of iso , patient can return 03/15
[2022-03-13] MEDS: HYDROcodone/ACETAMIN 10-325 MG TAB PO PRN ×2 (14:42→21:46)
--- NOTE | 2022-03-13 14:50 | NUR ---
STRUCTURAL WELDER ACSW Ashley responded to a Hospice Eval ACSW faxed packet for review to [facility] P: F:
--- NOTE | 2022-03-13 16:30 | NUR ---
Nutrition F/U RDN reviewed pt's current EMR including diet hx, physician notes, nursing notes, pertinent labs/ meds/ procedures, care trends, and care activity. Short note d/t high RD workload. Current Diet Order/ Nutrition Support: Mechanical Soft, finely chopped + Ensure Enlive TID (adds 1050kcal and 60g pro/day); Franco BID x 4 days Subjective Information: RD bedside visit deferred d/t high workload. RD spoke with RN who stated patient appetite is well, patient is drinking Ensure TID, and there are no nutrition concerns at this point. Per RD chart review, PO intake 74% x 12 meals (fair) however with Ensure TID, PO is adequate to meet patient's nutritional needs. LBM documented 03/12 x 1. Patient noted with 1+ non-pitting edema on L elbow 03/09. Regan score 11 on 03/12, and patient noted with anterior abdominal ecchymosis and posterior coccxy stage 2 PU. Per MD d/c summary, patient is stable for d/c however Prashanth Sierra requests patient wait until 10 days iso (03/15) before returning. Dietitian Recommendations * Continue Mechanical soft, finely chopped diet, Ensure Enlive TID, Franco BID (supplement = 1230 kcal & 65g pro per day) * Continue MVI, VIT C, VIT D, zinc * Encourage good PO intakes * If nutrition status/ intake changes, consult RD Low Risk F/U: 03/20/22
--- NOTE | 2022-03-13 16:47 | NUR ---
Dietitian Recommendations * Continue Mechanical soft, finely chopped diet, Ensure Enlive TID, Franco BID (supplement = 1230 kcal & 65g pro per day) * Continue MVI, VIT C, VIT D, zinc * Encourage good PO intakes * If nutrition status/ intake changes, consult RD Please refer to Nutritional F/U for details, thanks! CC, MPH, RDN
[2022-03-13 19:15] VITALS: BP_SYST 156
[2022-03-13 20:20] VITALS: BP_SYST 112
[2022-03-13] MEDS: TEMAZEPAM 7.5 MG CAPSULE PO PRN (21:58)
[2022-03-14 00:47] VITALS: BP_SYST 123
--- NOTE | 2022-03-14 01:04 | NUR ---
Per Dr. Aranda, ok to discontinue isolation since patient has tested negative for COVID-19. Dr. Aranda also aware that patient has not been discharged because placement is still pending (per notes from pillowcase turner and social economist).
--- NOTE | 2022-03-14 04:30 | NUR ---
Rounds Patient sleeping in bed, unlabored breathing on room air.
[2022-03-14] MEDS: HYDROcodone/ACETAMIN 10-325 MG TAB PO PRN (05:54)
--- NOTE | 2022-03-14 07:44 | NUR ---
Closing Patient resting in bed, unlabored breathing on room air. COVID isolation discontinued. No Gonzalez catheter in place at start of shift, patient has voided multiple times but is incontinent. Urine sample still needs to be collected. Turned and repositioned, wound care provided. PRN [place] given for complaint of left arm pain. Call light in reach, bed alarm on.
[2022-03-14 08:00] VITALS: BP_SYST 104
[2022-03-14] MEDS: levETIRAcetam 500 MG TABLET PO SCH ×2 (08:31→21:30)
[2022-03-14] MEDS: ASPIRIN 81 MG TAB.CHEW PO SCH (08:31)
[2022-03-14] MEDS: VALPROIC ACID 250 MG CAPSULE (DEPAKENE) PO SCH ×2 (08:32→21:32)
[2022-03-14] MEDS: POTASSIUM CHLORIDE 20 MEQ/PKT PACKET PO SCH (08:32)
[2022-03-14] MEDS: MAGNESIUM OXIDE 400 MG TABLET PO SCH (08:32)
[2022-03-14] MEDS: TAMSULOSIN HCL 0.4 MG CAP PO SCH (08:32)
[2022-03-14] MEDS: amLODIPine BESYLATE 5 MG TABLET PO SCH (08:33)
--- NOTE | 2022-03-14 12:00 | NUR ---
LINTING MACHINE OPERATOR ACSW Ashley contacted [facility] with [facility] to obtain update on hospice. According to [facility], patient will be receiving services via [place] at [facility]. Due to [facility] requiring 10 day waiting period due to COVID, the patient will not be transferred till 03/15, this is also reflected in CM notes. ACSW will continue to be available as needed
[2022-03-14 12:35] VITALS: BP_SYST 109
[2022-03-14 15:32] VITALS: BP_SYST 118
--- NOTE | 2022-03-14 18:41 | NUR ---
Shift Summary: patient is AAOX3. vitals are stable. patient informed of need for urine sample and to inform staff if patient needs to void. patient states he understands. patient incontinent and unable to collect urine sample. [id number] during shift. patient states he has no questions or concerns and is resting. bed alarm on and set to lock. call light within reach. will endorse to oncoming nurse.
[2022-03-14 20:15] VITALS: BP_SYST 98
--- NOTE | 2022-03-14 20:26 | NUR ---
Paged through exchange.
--- NOTE | 2022-03-14 20:30 | NUR ---
Opening Patient resting in bed, awake and alert. BP decreased - 85/46, 98/68 on recheck. Heart rate elevated in 150s, then down to 135. Patient complaining of constipation and related discomfort.
[2022-03-14] MEDS ORDERED: NS 500 ML IV ONE (20:45)
[2022-03-14] MEDS ORDERED: MILK OF MAGNESIA 30 ML UDC PO PRN (20:45)
--- NOTE | 2022-03-14 20:45 | NUR ---
Informed Dr. Shetty of patient's BP and elevated heart rate, as well as that patient has been refusing a new IV for several days (MD aware) and has no access currently. Also notified Dr. Shetty of patient's report of constipation. Received order for 500mL NS bolus, NS @ 50mL following bolus, and milk of magnesia PRN for constipation.
--- NOTE | 2022-03-14 23:34 | NUR ---
Patient continuing to refuse new IV access. Multiple attempts have been made at explaining the importance of the ordered IV fluids and the risks of low BP and elevated HR. Patient verbalizes understanding but states he does not want it. Oral intake of fluids encouraged. Heart rate remains elevated from 127-150s. BP has increased to 119/52 but drops at times to SBP in 90s. Updated Dr. Shetty on patient's refusal of IV access and current vitals. Received order to transfer to telemetry. Dr. Shetty said to keep monitoring and encouraging oral intake.
[2022-03-15 01:41] VITALS: BP_SYST 122
--- NOTE | 2022-03-15 06:06 | NUR ---
Patient turned and repositioned. Wound care done, foam dressing to sacrum clean and dry. Patient had two bowel movements following milk of magnesia PRN. Has been transferred to telemetry. HR currently 107. Continues to refuse IV access. Oral intake encouraged. Patient had 480 mL this morning. Call light in reach, bed alarm on.
--- NOTE | 2022-03-15 07:30 | NUR ---
RECEIVED PT FROM ERICA RAMOS. ASSUMED CARE.
[2022-03-15 08:00] VITALS: BP_SYST 105
[2022-03-15] MEDS: NACL 0.9% 1,000 ML IV SCH ×2 (08:37→12:52)
[2022-03-15] MEDS: VALPROIC ACID 250 MG CAPSULE (DEPAKENE) PO SCH ×2 (09:16→21:39)
[2022-03-15] MEDS: MAGNESIUM OXIDE 400 MG TABLET PO SCH (09:16)
[2022-03-15] MEDS: ASPIRIN 81 MG TAB.CHEW PO SCH (09:16)
[2022-03-15] MEDS: POTASSIUM CHLORIDE 20 MEQ/PKT PACKET PO SCH (09:17)
[2022-03-15] MEDS: levETIRAcetam 500 MG TABLET PO SCH ×2 (09:18→21:38)
[2022-03-15] MEDS: TAMSULOSIN HCL 0.4 MG CAP PO SCH (09:18)
[2022-03-15] MEDS: amLODIPine BESYLATE 5 MG TABLET PO SCH (09:18)
--- NOTE | 2022-03-15 10:00 | NUR ---
SCHEDULED MEDS GIVEN AND TOLERATED WELL. PT TURNED AND REPOSTIONED FOR COMFORT.
[2022-03-15 12:00] VITALS: BP_SYST 115
--- NOTE | 2022-03-15 14:00 | NUR ---
PT GIVEN PARTIAL BED BATH, GOWN AND LINEN CHANGED. PT TOLERATED ACTIVITY WELL.
--- NOTE | 2022-03-15 15:55 | NUR ---
patient discharging back to [facility] shaquille/donna , has sign on with [facility] medic 1 ambulance scheduled for bulk picker 03/16/22 for 11:00am bulk picker
[2022-03-15 16:00] VITALS: BP_SYST 110
--- NOTE | 2022-03-15 19:25 | NUR ---
ALL CARE ENDORSED TO ERICA TAPIA. ALL QUESTIONS AND ADDRESSED
[2022-03-16] VITALS: BP_SYST 106
[2022-03-16 07:45] VITALS: BP_SYST 100
--- NOTE | 2022-03-16 07:45 | NUR ---
OPEN NOTE Patient in bed resting. A/O x 2-3 . Patient speaks Scottish. No noticeable signs of pain, no SOB, no distress noted at this time. Patient has no IV access due to patient refusal and MD is aware. Call light is within reach. Bed is locked in lowest position and all needs met at this time. Will continue to monitor.
[2022-03-16] MEDS: ASPIRIN 81 MG TAB.CHEW PO SCH (08:40)
[2022-03-16] MEDS: TAMSULOSIN HCL 0.4 MG CAP PO SCH (08:41)
[2022-03-16] MEDS: POTASSIUM CHLORIDE 20 MEQ/PKT PACKET PO SCH (08:41)
[2022-03-16] MEDS: levETIRAcetam 500 MG TABLET PO SCH (08:41)
[2022-03-16] MEDS: amLODIPine BESYLATE 5 MG TABLET PO SCH (08:41)
[2022-03-16] MEDS: VALPROIC ACID 250 MG CAPSULE (DEPAKENE) PO SCH (08:41)
[2022-03-16] MEDS: MAGNESIUM OXIDE 400 MG TABLET PO SCH (08:42)
--- NOTE | 2022-03-16 10:43 | NUR ---
KRISTY FROM [facility] CALLED RE: DISCHARGE TO [facility] RM 106A UNDER HOSPICE. [facility] WILL TRANSPORT @ 1330. FOR ANY ISSUE/PROBLEM PLS CALL HOT LINE [phone]
[2022-03-16 11:07] VITALS: BP_SYST 100
--- NOTE | 2022-03-16 11:37 | NUR ---
DISCHARGE Patient discharged to [facility] with [facility]. Spoke with ERICA Dave at [facility] to give report. Patient has no pain, no SOB, no distress. Patient made aware of Discharge and left via gurney transportation.
--- NOTE | 2022-03-16 11:57 | NUR ---
[facility] WAS CALLED TO INFORM THAT HCP CM MS HALL ARRANGED AMBULANCE TRANSFER TO [facility], [id number]. [facility] CAME AT 1030. SPOKE WITH JOE OF [facility] TO CANCEL THEIR BOOKING WITH [facility].
== END 2022-03-16 11:35 | disposition hospice, inpatient (51) | DRG 100 ==
LOC: SED 14:53 → SMU 17:16 → STU 03-14 23:39
PROVIDERS: ADMIT Specialist; ATTEND Specialist
PROC: 0T9B70Z Drainage of Bladder with Drainage Device, Via Natural or Artificial Opening (ICD-10-PCS; principal; 2022-03-05)
DX: G40.909 Epilepsy, unspecified, not intractable, without status epilepticus (principal); E43 Unspecified severe protein-calorie malnutrition; U07.1 COVID-19; E83.51 Hypocalcemia; F03.90 Unspecified dementia, unspecified severity, without behavioral disturbance, psychotic disturbance, mood disturbance, and anxiety; E78.5 Hyperlipidemia, unspecified; N40.0 Benign prostatic hyperplasia without lower urinary tract symptoms; E87.6 Hypokalemia; E11.9 Type 2 diabetes mellitus without complications; G89.29 Other chronic pain; Z79.899 Other long term (current) drug therapy; Z79.82 Long term (current) use of aspirin; Z68.23 Body mass index [BMI] 23.0-23.9, adult
CPT/HCPCS: 36415; 70450-TC; 71045; 76376; 80048; 80053; 81000; 82962; 83605; 83735; 84484; 85025; 87040; 87081; 87086; 93005; 96365; 96375; 97163-GP; 99285; G0378; J0610; J0696; J1953; J3475; J3480; J7060

== ENCOUNTER 2023-08-15 07:53 | Inpatient (IN) | payer OTHER, MEDICAID ==
[~2023-08-15] VITALS: Ht 180.3 cm; Wt 101.6 kg
[~2023-08-15 07:53] MED LIST changes: +ACET-73 PO; +ALLO100T PO; +ARGI1POW13 PO; +ASPI-1393 PO; -BISA10SU8 PR; -DEPS125 PO; +DICL100G60 TP; -DOXY100T2 PO; +FINA-37 PO; -FINA5TAB3 PO; +LEVE100S PO; -MELA3CAP2 PO; +MENT118G TP; +MOM PO; +MULT9LIQ6 PO; +NOR10 PO; +TRAZ-250 PO; +VALP250C3 PO; -ZINC220T4 PO
[2023-08-15 07:55] VITALS: BP_SYST 148; PULSE 62; RESP 18; TEMP 98.3; O2SAT 99
[2023-08-15 08:45] LABS: ANION GAP 9 (5-15); CALCIUM 8.8 mg/dL (8.4-11.0); CARBON DIOXIDE 23 mmol/L (23-29); CHLORIDE 109 mmol/L (98-107); CREATININE 1.03 mg/dL (0.55-1.30); GLUCOSE 94 mg/dL (74-106); POTASSIUM 4.4 mmol/L (3.5-5.1); SODIUM SERUM 141 mmol/L (136-145); UREA NITROGEN, BLOOD 12 mg/dL (8-21)
[2023-08-15 08:49] LABS: ALANINE AMINOTRANSFERASE 60 U/L (12-78); ALBUMIN 2.7 g/dL (3.4-4.8); ASPARTATE AMINOTRANSFERASE 36 U/L (10-37); BILIRUBIN,DIRECT 0.1 mg/dL (0.0-0.3); TOTAL BILIRUBIN 0.4 mg/dL (0.0-1.0); TOTAL PROTEIN, SERUM 7.2 g/dL (6.4-8.3); VALPROIC ACID 53 ug/mL (50-100)
[2023-08-15 09:26] LABS: HEMATOCRIT 40.6 % (36-54); HEMOGLOBIN 13.8 g/dL (14.0-18.0); MEAN CORPUSCULAR HEMOGLOBIN 30 pg (27-31); MEAN CORPUSCULAR HGB CONC 34 % (32-36); MEAN CORPUSCULAR VOLUME 89 fL (79.0-98.0); PLATELET COUNT (AUTO) 135 K/uL (130-430); RED BLOOD CELL COUNT(AUTO) 4.57 MIL/uL (4.2-6.2); RED CELL DISTRIBUTION WIDTH 15.6 % (9.0-15.0); WHITE BLOOD COUNT (AUTO) 5.2 K/uL (4.8-10.8)
[2023-08-15 10:00] LABS: BASOPHILS % (MANUAL) 0 % (0-2); EOSINOPHILS % (MANUAL) 8 % (0-7); LYMPHOCYTES % (MANUAL) 38 % (20-46); MONOCYTES % (MANUAL) 17 % (0-11); PLATELET ESTIMATE ADEQUATE (ADEQUATE)
[2023-08-15] MEDS ORDERED: LEVE750T4 PO (10:53)
[2023-08-15] MEDS ORDERED: ALLO100T PO (10:53)
[2023-08-15] MEDS ORDERED: NOR10 PO (10:53)
[2023-08-15] MEDS ORDERED: DIVA-74 PO (10:53)
[2023-08-15] MEDS ORDERED: ASPI-859 PO (10:53)
[2023-08-15] MEDS ORDERED: FINA-37 PO (10:53)
[2023-08-15] MEDS ORDERED: LIP20 PO (10:53)
[2023-08-15] MEDS ORDERED: NON-FORMULARY MEDICATION (Diclofenac Sodium 1 APPLIC) TP PRN (11:30)
[2023-08-15] MEDS ORDERED: MILK OF MAGNESIA 30 ML UDC PO PRN (11:30)
[2023-08-15] MEDS ORDERED: traZODone HCL 50 MG TABLET (DESYREL) PO PRN (11:30)
[2023-08-15] MEDS ORDERED: LORazepam 2 MG/ML VIAL IM PRN (11:30)
[2023-08-15] MEDS ORDERED: NALOXONE HCL 0.4 MG/ML AMP (NARCAN) IVP PRN (11:30)
[2023-08-15] MEDS ORDERED: ACETAMINOPHEN 500 MG TABLET PO PRN (11:30)
[2023-08-15] MEDS ORDERED: POLYETHYLENE GLYCOL 3350, 17 GM/ POWD.PACK PO PRN (12:45)
[2023-08-15] MEDS: amLODIPine BESYLATE 10 MG TABLET PO ONE (13:04)
[2023-08-15] MEDS: TAMSULOSIN HCL 0.4 MG CAP PO ONE (13:05)
[2023-08-15] MEDS: LevETIRAcetam 500 MG/5 ML UDC ORAL LIQUID PO ONE (13:05)
[2023-08-15] MEDS: FINASTERIDE 5 MG TABLET (PROSCAR) PO ONE (13:07)
[2023-08-15 15:32] LABS: BILIRUBIN,URINE NEGATIVE (NEGATIVE); BLOOD, URINE 3+ (NEGATIVE); CLARITY/URINE SL CLOUDY (CLEAR); COLOR,URINE YELLOW (YELLOW); GLUCOSE,URINE NEGATIVE (NEGATIVE); KETONES,URINE NEGATIVE (NEGATIVE); LEUKOCYTE ESTERASE ,URINE 2+ (NEGATIVE); NITRITE, URINE NEGATIVE (NEGATIVE); PROTEIN URINE NEGATIVE (NEGATIVE); UROBILINOGEN,URINE 0.2 (0.2-1.0)
[2023-08-15 15:57] LABS: BACTERIA,URINE MODERATE /HPF (None Seen)
[2023-08-15 16:15] VITALS: BP_SYST 135; PULSE 55; RESP 16; TEMP 99.3
[2023-08-15] MEDS ORDERED: NON-FORMULARY MEDICATION (Arginine/Ascorbate Sod/Vite AC (Arginaid Powder) 1 EACH) PO SCH (21:00)
[2023-08-15] MEDS: VALPROIC ACID 250 MG CAPSULE (DEPAKENE) PO SCH (21:52)
[2023-08-15] MEDS: ATORVASTATIN 20 MG TABLET PO SCH (21:52)
[2023-08-15] MEDS: SENNOSIDES 8.6 MG TABLET PO SCH (21:54)
[2023-08-15] MEDS: DOCUSATE SODIUM 100 MG CAPSULE PO SCH (21:55)
[2023-08-15] MEDS: HYDROcodone/ACETAMIN 5-325 MG TAB (NORCO/ VICODIN) PO PRN (21:57)
[2023-08-15] MEDS: LevETIRAcetam 500 MG/5 ML UDC ORAL LIQUID PO SCH (22:16)
[2023-08-16 00:49] VITALS: BP_SYST 130; PULSE 58; RESP 16; TEMP 96.9; O2SAT 97
[2023-08-16 06:11] LABS: BASOPHILS % (AUTO) 0.4 % (0.0-2.0); EOSINOPHILS # (AUTO) 0.5 K/uL (0.0-0.4); EOSINOPHILS % (AUTO) 8.4 % (0.0-4.0); HEMATOCRIT 44.8 % (36-54); HEMOGLOBIN 15.1 g/dL (14.0-18.0); LYMPHOCYTES % (AUTO) 51.9 % (20.5-51.5); MEAN CORPUSCULAR HEMOGLOBIN 30 pg (27-31); MEAN CORPUSCULAR HGB CONC 34 % (32-36); MEAN CORPUSCULAR VOLUME 90 fL (79.0-98.0); MONOCYTES # (AUTO) 0.6 K/uL (0.0-1.0); MONOCYTES % (AUTO) 9.9 % (1.7-9.3); NEUTROPHILS # (AUTO) 1.7 K/uL (1.8-7.7); NEUTROPHILS % (AUTO) 29.4 % (40.0-70.0); PLATELET COUNT (AUTO) 132 K/uL (130-430); RED BLOOD CELL COUNT(AUTO) 4.96 MIL/uL (4.2-6.2); RED CELL DISTRIBUTION WIDTH 15.4 % (9.0-15.0); WHITE BLOOD COUNT (AUTO) 5.8 K/uL (4.8-10.8)
[2023-08-16 06:39] LABS: INR 1.1 (0.80-1.20); PROTHROMBIN TIME 11.2 SECS (9.5-12.5)
[2023-08-16 06:58] LABS: ALANINE AMINOTRANSFERASE 66 U/L (12-78); ALBUMIN 3.1 g/dL (3.4-4.8); ANION GAP 10 (5-15); ASPARTATE AMINOTRANSFERASE 41 U/L (10-37); CARBON DIOXIDE 26 mmol/L (23-29); CHLORIDE 104 mmol/L (98-107); CREATININE 1.02 mg/dL (0.55-1.30); GLUCOSE 79 mg/dL (74-106); POTASSIUM 4.3 mmol/L (3.5-5.1); SODIUM SERUM 140 mmol/L (136-145); THYROID STIMULATING HORMONE 2.47 uIu/mL (0.34-4.82); TOTAL BILIRUBIN 0.5 mg/dL (0.0-1.0); TOTAL PROTEIN, SERUM 7.8 g/dL (6.4-8.3); UREA NITROGEN, BLOOD 13 mg/dL (8-21); VALPROIC ACID 57 ug/mL (50-100)
[2023-08-16 08:01] VITALS: BP_SYST 129; PULSE 78; RESP 16; TEMP 98.3; O2SAT 96
[2023-08-16] MEDS ORDERED: MULTIVIT PO SCH (09:00)
[2023-08-16] MEDS ORDERED: MINERALS PO SCH (09:00)
[2023-08-16] MEDS ORDERED: FERROUS FUM PO SCH (09:00)
[2023-08-16] MEDS ORDERED: MENTHOL TP SCH (09:00)
[2023-08-16] MEDS: MULTIVITS,CA,MINERALS/IRON/FA 1 TABLET PO SCH (09:38)
[2023-08-16] MEDS: FINASTERIDE 5 MG TABLET (PROSCAR) PO SCH (09:38)
[2023-08-16] MEDS: ASCORBIC ACID 500 MG TABLET PO SCH (09:38)
[2023-08-16] MEDS: amLODIPine BESYLATE 10 MG TABLET PO SCH (09:39)
[2023-08-16] MEDS: ASPIRIN 81 MG TABLET(ECOTRIN) PO SCH (09:39)
[2023-08-16] MEDS: ALLOPURINOL 100 MG TABLET (ZYLOPRIM) PO SCH (09:39)
[2023-08-16] MEDS: PARoxetine HCL 20 MG TABLET PO SCH (09:39)
[2023-08-16] MEDS: TAMSULOSIN HCL 0.4 MG CAP PO SCH (09:40)
[2023-08-16 12:14] VITALS: BP_SYST 121; PULSE 78; RESP 16; TEMP 98.8; O2SAT 97
[2023-08-16 16:00] VITALS: BP_SYST 128; PULSE 84; TEMP 98.6; O2SAT 92
[2023-08-16 20:00] VITALS: BP_SYST 123; PULSE 77; RESP 18; TEMP 97.9; O2SAT 94
[2023-08-16 22:44] VITALS: O2SAT 94
[2023-08-17 00:23] VITALS: BP_SYST 132; PULSE 81; RESP 16; TEMP 97.3; O2SAT 97
[2023-08-17 08:00] VITALS: BP_SYST 139; PULSE 77; RESP 18; TEMP 98.2; O2SAT 97; O2SAT 99
[2023-08-17 15:40] VITALS: BP_SYST 139; PULSE 77; RESP 16; TEMP 97.7; O2SAT 97
[2023-08-17] MEDS: cefTRIAXone 1 GM in D5W 50 ML IV SCH (16:00)
[2023-08-17 17:18] VITALS: BP_SYST 125; PULSE 78; RESP 17; TEMP 98.3; O2SAT 95
== END 2023-08-17 16:43 | DRG 101 ==
LOC: SED 07:53 → SMU 10:10 → STU 15:36
PROVIDERS: ADMIT Internal Medicine; ATTEND Internal Medicine
PROC: 05HY33Z Insertion of Infusion Device into Upper Vein, Percutaneous Approach (ICD-10-PCS; 2023-08-06)
PROC: 4A00X4Z Measurement of Central Nervous Electrical Activity, External Approach (ICD-10-PCS; principal; 2023-08-16)
DX: G40.909 Epilepsy, unspecified, not intractable, without status epilepticus (principal); I69.354 Hemiplegia and hemiparesis following cerebral infarction affecting left non-dominant side; N39.0 Urinary tract infection, site not specified; E44.0 Moderate protein-calorie malnutrition; I10 Essential (primary) hypertension; E78.5 Hyperlipidemia, unspecified; N40.0 Benign prostatic hyperplasia without lower urinary tract symptoms; Z79.899 Other long term (current) drug therapy; Z68.31 Body mass index [BMI] 31.0-31.9, adult
CPT/HCPCS: 36415; 70450-TC; 70551; 73030; 76376; 80048; 80053; 80076; 80164; 81000; 81001; 81015; 82140; 83605; 83735; 84100; 84439; 84443; 85007; 85025; 85027; 85610; 85730; 93005; 95816; 97116-GP; 97530-GP; 99285; G0378; J0696; J7060

== ENCOUNTER 2023-12-31 16:19 | Emergency (ER) | payer OTHER, MEDICAID ==
[~2023-12-31] VITALS: Ht 177.8 cm; Wt 92.5 kg
[~2023-12-31 16:19] MED LIST changes: +ACET325T53 PO; -ARGI1POW13 PO; -ASPI-1393 PO; +ASPI-859 PO; +BISA10SU61 RC; +CIPR250T4 PO; -DICL100G60 TP; +MULT-1089 PO; -MULT9LIQ6 PO; -POLY119P15 PO; +POLY17PO4 PO; -TRAZ-250 PO
[2023-12-31 16:20] VITALS: BP_SYST 141; PULSE 72; RESP 19; TEMP 97.2; O2SAT 98
[2023-12-31] MEDS: levETIRAcetam 500 MG TABLET PO ONE (17:35)
[2023-12-31 18:24] LABS: BASOPHILS % (AUTO) 0.4 % (0.0-2.0); EOSINOPHILS % (AUTO) 0.4 % (0.0-4.0); HEMATOCRIT 47.4 % (36-54); HEMOGLOBIN 16.2 g/dL (14.0-18.0); LYMPHOCYTES # (AUTO) 1.3 K/uL (1.0-5.5); LYMPHOCYTES % (AUTO) 21.1 % (20.5-51.5); MEAN CORPUSCULAR HEMOGLOBIN 31 pg (27-31); MEAN CORPUSCULAR HGB CONC 34 % (32-36); MEAN CORPUSCULAR VOLUME 91 fL (79.0-98.0); MONOCYTES # (AUTO) 0.4 K/uL (0.0-1.0); MONOCYTES % (AUTO) 6.1 % (1.7-9.3); NEUTROPHILS # (AUTO) 4.6 K/uL (1.8-7.7); PLATELET COUNT (AUTO) 154 K/uL (130-430); WHITE BLOOD COUNT (AUTO) 6.3 K/uL (4.8-10.8)
[2023-12-31 18:31] LABS: ANION GAP 9 (5-15); CALCIUM 9.2 mg/dL (8.4-11.0); CARBON DIOXIDE 26 mmol/L (23-29); CHLORIDE 102 mmol/L (98-107); CREATININE 1.04 mg/dL (0.55-1.30); GLUCOSE 125 mg/dL (74-106); POTASSIUM 4.4 mmol/L (3.5-5.1); SODIUM SERUM 137 mmol/L (136-145); UREA NITROGEN, BLOOD 12 mg/dL (8-21)
[2023-12-31] MEDS ORDERED: LEVE100S PO (18:57)
[2023-12-31 20:59] VITALS: BP_SYST 109; PULSE 96; RESP 19; TEMP 98.3; O2SAT 94
== END 2023-12-31 20:59 ==
LOC: SED 16:19
DX: R56.9 Unspecified convulsions (principal); E11.9 Type 2 diabetes mellitus without complications; I10 Essential (primary) hypertension; E78.5 Hyperlipidemia, unspecified; G89.29 Other chronic pain; Z79.899 Other long term (current) drug therapy; Z79.2 Long term (current) use of antibiotics
CPT/HCPCS: 36415; 70450-TC; 80048; 83735; 85025; 93005; 99284